=== PATIENT | female | born 1935 | race African-American/Black ===

== ENCOUNTER 2021-05-29 05:54 | Day surgery (SDC) | payer OTHER, MEDICARE ==
[2021-05-22 16:39] VITALS: BMI 28.3
[2021-05-29] MEDS ORDERED: LIDOCAINE HCL 1%, 10 MG/ML (20ML VIAL) ONE (07:06)
[2021-05-29] MEDS ORDERED: BUPIVACAINE HCL/PF 0.25% (2.5MG/ML) 10 ML VIAL ONE (07:06)
[2021-05-29] MEDS ORDERED: GUM MASTIC/STORAX/MSAL/ALCOHOL 1 DRP DROPSBTL MC ONE (07:07)
[2021-05-29] MEDS ORDERED: LIDOCAINE HCL 2% (20ML MULTI-DOSE VIAL) ONE (07:23)
[2021-05-29] MEDS ORDERED: PROPOFOL 20 ML ONE (08:05)
[2021-05-29] MEDS ORDERED: SUCCINYLCHOLINE CHLORIDE 200 MG/10 ML SYRINGE ONE (08:05)
[2021-05-29] MEDS ORDERED: DEXAMETHASONE SOD PHOSPHATE 4 MG/1 ML VIAL ONE (08:11)
[2021-05-29] MEDS ORDERED: ONDANSETRON 4 MG/2 ML VIAL ONE (08:11)
[2021-05-29] MEDS ORDERED: LIDOCAINE HCL 2% (50ML VIAL) NR ONE (08:13)
[2021-05-29 10:48] VITALS: TEMP 97.8
[2021-05-29 10:52] VITALS: BP 108/67; PULSE 75
== END 2021-05-29 09:45 | disposition home or self-care (01) ==
LOC: FASU 05:54
PROVIDERS: ATTEND Orthopaedic Surgery Hand Surgery
PROC: 01N50ZZ Release Median Nerve, Open Approach (ICD-10-PCS; principal; 2021-05-29 08:21)
PROC: 0LN80ZZ Release Left Hand Tendon, Open Approach (ICD-10-PCS; 2021-05-29 08:21)
DX: G56.02 Carpal tunnel syndrome, left upper limb (principal); M65.332 Trigger finger, left middle finger
CPT/HCPCS: 82962